=== PATIENT | female | born 2000 | race Two or more races ===

== ENCOUNTER 2022-11-06 18:54 | Emergency (ER) | payer OTHER ==
[~2022-11-06] VITALS: Ht 162.6 cm; Wt 53.1 kg
[2022-11-06] MEDS ORDERED: ADVIL DUAL ACT1 EACH PO (21:33)
== END 2022-11-06 22:55 | disposition home or self-care (01) ==
LOC: ER 18:54 → EMR PED 19:07 → ER 19:07 → EMR PED 22:55
DX: S93.402A Sprain of unspecified ligament of left ankle, initial encounter (principal); W17.89XA Other fall from one level to another, initial encounter; Y93.89 Activity, other specified; Y92.89 Other specified places as the place of occurrence of the external cause; Y99.9 Unspecified external cause status